=== PATIENT | male | born 1955 | race Two or more races ===

== ENCOUNTER 2018-09-23 12:21 | Inpatient (IN) | payer OTHER ==
[~2018-09-23] VITALS: Ht 13.5 cm; Wt 99.8 kg
== END 2018-10-05 19:50 | disposition home or self-care (01) | DRG 808 ==
LOC: ER 12:21 → SURH 21:34
PROC: 30233N1 Transfusion of Nonautologous Red Blood Cells into Peripheral Vein, Percutaneous Approach (ICD-10-PCS; 2018-09-24)
PROC: BW24ZZZ Computerized Tomography (CT Scan) of Chest and Abdomen (ICD-10-PCS; 2018-09-27)
PROC: 4A033R1 Measurement of Arterial Saturation, Peripheral, Percutaneous Approach (ICD-10-PCS; 2018-09-27)
PROC: 0DBL8ZX Excision of Transverse Colon, Via Natural or Artificial Opening Endoscopic, Diagnostic (ICD-10-PCS; principal; 2018-10-05)
DX: D59.1 Other autoimmune hemolytic anemias (principal); J18.1 Lobar pneumonia, unspecified organism; J90 Pleural effusion, not elsewhere classified; I30.8 Other forms of acute pericarditis; E09.65 Drug or chemical induced diabetes mellitus with hyperglycemia; E09.51 Drug or chemical induced diabetes mellitus with diabetic peripheral angiopathy without gangrene; D12.3 Benign neoplasm of transverse colon; K80.80 Other cholelithiasis without obstruction; K76.0 Fatty (change of) liver, not elsewhere classified; I10 Essential (primary) hypertension; J44.9 Chronic obstructive pulmonary disease, unspecified; J45.40 Moderate persistent asthma, uncomplicated; H26.8 Other specified cataract; E66.9 Obesity, unspecified

== ENCOUNTER 2019-05-02 15:14 | Inpatient (IN) | payer OTHER ==
[~2019-05-02] VITALS: Ht 160 cm; Wt 99.8 kg
--- NOTE | 2019-05-02 15:37 | NUR ---
PTE ALERTA Y ORIENTADO X 3 ESFERAS QUIEN REFIERE SER ENVIADO POR DR KHAN POR R/O DE PULMONIA Y ANEMIA,PTE REFIERE CANSANCIO DESDE HACE VARIOS FINLEY,SE OBSERVA ICTERICO,PTE REFIERE QUE LE PASA CUANDO TIENE ANEMIA,SE OBSERVA CON TOS.
--- NOTE | 2019-05-02 17:29 | NUR ---
PACIENTE ALERTA Y ORIENTADO X3. MANEJADA POR MISS. COHEN QUIEN ORIENTA A PACIENTE SOBRE TX Y PROCEDIMIENTO A REALIZAR. ADMINISTRA MEDICAMENTO BUZZ ORDEN MEDICA, PENDIENTE ADMINISTRAR MAXIPIME ORDENADO. REALIZA MUESTRAS DE LABORATORIO BAJO MEDIDAS ASEPTICAS. CANALIZACION PATENTE Y MADHU DE EDEMA Y ERITEMA. PENDIENTE ABG, PLACA Y CT DE PECHO ORDENADOS.
[2019-05-03] MEDS ORDERED: FOLIC ACID1 MG PO (08:11)
[2019-05-03] MEDS ORDERED: LISINOPRIL20 MG PO (08:11)
[2019-05-03] MEDS ORDERED: AZATHIOPRINE50 MG PO (08:11)
== END 2019-05-15 13:32 | disposition home or self-care (01) | DRG 194 ==
LOC: ER 15:14 → MEDJ 21:57 → ICU 21:57 → MEDJ 05-03 14:50 → ICU 05-09 17:29 → MEDJ 05-12 22:14
PROVIDERS: ADMIT Specialist
PROC: BW24ZZZ Computerized Tomography (CT Scan) of Chest and Abdomen (ICD-10-PCS; principal; 2019-05-02)
PROC: 3E0F7GC Introduction of Other Therapeutic Substance into Respiratory Tract, Via Natural or Artificial Opening (ICD-10-PCS; 2019-05-02)
PROC: 4A12X4Z Monitoring of Cardiac Electrical Activity, External Approach (ICD-10-PCS; 2019-05-03)
PROC: 3E03305 Introduction of Other Antineoplastic into Peripheral Vein, Percutaneous Approach (ICD-10-PCS; 2019-05-05)
PROC: 30233N1 Transfusion of Nonautologous Red Blood Cells into Peripheral Vein, Percutaneous Approach (ICD-10-PCS; 2019-05-06)
PROC: 8E0ZXY6 Isolation (ICD-10-PCS; 2019-05-09)
PROC: 02HV33Z Insertion of Infusion Device into Superior Vena Cava, Percutaneous Approach (ICD-10-PCS; 2019-05-10)
PROC: 30233M1 Transfusion of Nonautologous Plasma Cryoprecipitate into Peripheral Vein, Percutaneous Approach (ICD-10-PCS; 2019-05-10)
PROC: 6A550Z3 Pheresis of Plasma, Single (ICD-10-PCS; 2019-05-10)
DX: J10.1 Influenza due to other identified influenza virus with other respiratory manifestations (principal); N17.8 Other acute kidney failure; D59.1 Other autoimmune hemolytic anemias; N39.0 Urinary tract infection, site not specified; J91.8 Pleural effusion in other conditions classified elsewhere; J10.00 Influenza due to other identified influenza virus with unspecified type of pneumonia; D63.8 Anemia in other chronic diseases classified elsewhere; Z79.4 Long term (current) use of insulin; K80.80 Other cholelithiasis without obstruction; J20.9 Acute bronchitis, unspecified; E86.0 Dehydration; E87.8 Other disorders of electrolyte and fluid balance, not elsewhere classified; E09.9 Drug or chemical induced diabetes mellitus without complications; T38.0X5A Adverse effect of glucocorticoids and synthetic analogues, initial encounter; D72.828 Other elevated white blood cell count; R60.1 Generalized edema; K29.00 Acute gastritis without bleeding; E87.6 Hypokalemia; R09.02 Hypoxemia

== ENCOUNTER → 2020-08-07 | Outpatient (CLI) | payer OTHER ==
[~2020-08-07] MED LIST: AZATHIOPRINE50 MG PO; FOLIC ACID1 MG PO; LISINOPRIL20 MG PO
== END | disposition home or self-care (01) ==
LOC: MRI 08:45
PROVIDERS: ATTEND Physical Medicine & Rehabilitation
DX: M25.561 Pain in right knee (principal)
CPT/HCPCS: 73221

== ENCOUNTER 2021-02-05 07:04 | Inpatient (IN) | payer OTHER ==
[~2021-02-05] VITALS: Ht 160 cm; Wt 110.2 kg
[2021-02-11] MEDS ORDERED: HYDROCODONE-CH115 ML PO (08:57)
[2021-02-11] MEDS ORDERED: FOLIC ACID1 MG PO (08:58)
== END 2021-02-11 11:24 | disposition home or self-care (01) | DRG 810 ==
LOC: MEDI 07:04
PROVIDERS: ADMIT Internal Medicine Hematology & Oncology; ATTEND Internal Medicine Hematology & Oncology
PROC: 30233N1 Transfusion of Nonautologous Red Blood Cells into Peripheral Vein, Percutaneous Approach (ICD-10-PCS; principal; 2021-02-05)
PROC: 8E0ZXY6 Isolation (ICD-10-PCS; 2021-02-05)
PROC: 3E0F7SF Introduction of Other Gas into Respiratory Tract, Via Natural or Artificial Opening (ICD-10-PCS; 2021-02-07)
DX: D59.10 Autoimmune hemolytic anemia, unspecified (principal); E11.51 Type 2 diabetes mellitus with diabetic peripheral angiopathy without gangrene; E11.65 Type 2 diabetes mellitus with hyperglycemia; I70.209 Unspecified atherosclerosis of native arteries of extremities, unspecified extremity; E66.8 Other obesity

== ENCOUNTER 2021-02-21 12:55 | Inpatient (IN) | payer OTHER ==
[~2021-02-21] VITALS: Ht 160 cm; Wt 108.9 kg
[~2021-02-21 12:55] MED LIST changes: +HYDROCODONE-CH115 ML PO
[2021-02-25] MEDS ORDERED: AMOXICILLIN500 M1 PO (09:08)
== END 2021-02-25 10:56 | disposition home or self-care (01) | DRG 809 ==
LOC: MEDJ 12:55
PROVIDERS: ADMIT Internal Medicine Hematology & Oncology; ATTEND Internal Medicine Hematology & Oncology
PROC: 30233N1 Transfusion of Nonautologous Red Blood Cells into Peripheral Vein, Percutaneous Approach (ICD-10-PCS; principal; 2021-02-21)
DX: D59.19 Other autoimmune hemolytic anemia (principal); N39.0 Urinary tract infection, site not specified; R06.02 Shortness of breath; R53.1 Weakness; E11.65 Type 2 diabetes mellitus with hyperglycemia; Z79.4 Long term (current) use of insulin; I10 Essential (primary) hypertension

== ENCOUNTER 2021-03-10 11:39 | Inpatient (IN) | payer OTHER ==
[~2021-03-10] VITALS: Ht 160 cm; Wt 107.5 kg
[~2021-03-10 11:39] MED LIST changes: +AMOXICILLIN500 M1 PO
[2021-03-13] MEDS ORDERED: HYDROCODONE-CH115 ML PO (09:16)
[2021-03-13] MEDS ORDERED: FOLIC ACID1 MG PO (09:17)
[2021-03-13] MEDS ORDERED: BETAMETHASONE D15 G3 TOP (09:17)
== END 2021-03-13 10:14 | disposition home or self-care (01) | DRG 810 ==
LOC: SEC-K 11:39 → MEDI 18:01
PROVIDERS: ADMIT Internal Medicine Hematology & Oncology; ATTEND Internal Medicine Hematology & Oncology
PROC: 30233N1 Transfusion of Nonautologous Red Blood Cells into Peripheral Vein, Percutaneous Approach (ICD-10-PCS; principal; 2021-03-10)
PROC: 8E0ZXY6 Isolation (ICD-10-PCS; 2021-03-10)
DX: D59.19 Other autoimmune hemolytic anemia (principal); I10 Essential (primary) hypertension; E11.9 Type 2 diabetes mellitus without complications; Z20.822 Contact with and (suspected) exposure to COVID-19

== ENCOUNTER 2021-03-28 15:01 | Inpatient (IN) | payer OTHER ==
[~2021-03-28] VITALS: Ht 160 cm; Wt 107.5 kg
[~2021-03-28 15:01] MED LIST changes: +BETAMETHASONE D15 G3 TOP
[2021-03-31] MEDS ORDERED: Lantus 1000 UNITS/10 SUBCUTANEO (18:39)
== END 2021-03-31 20:56 | disposition home or self-care (01) | DRG 810 ==
LOC: SURH 15:01
PROVIDERS: ADMIT Internal Medicine Hematology & Oncology; ATTEND Internal Medicine Hematology & Oncology
PROC: 8E0ZXY6 Isolation (ICD-10-PCS; 2021-03-29)
PROC: 30233N1 Transfusion of Nonautologous Red Blood Cells into Peripheral Vein, Percutaneous Approach (ICD-10-PCS; principal; 2021-03-30)
DX: D59.19 Other autoimmune hemolytic anemia (principal); E83.111 Hemochromatosis due to repeated red blood cell transfusions; E11.65 Type 2 diabetes mellitus with hyperglycemia; I10 Essential (primary) hypertension; Z79.4 Long term (current) use of insulin; T38.0X5A Adverse effect of glucocorticoids and synthetic analogues, initial encounter

== ENCOUNTER 2021-04-28 11:13 | Inpatient (IN) | payer OTHER ==
[~2021-04-28] VITALS: Ht 162.6 cm; Wt 106.6 kg
[~2021-04-28 11:13] MED LIST changes: +Lantus 1000 UNITS/10 SUBCUTANEO
[2021-05-02] MEDS ORDERED: HYDROCODONE-CH115 ML PO (18:24)
== END 2021-05-02 21:58 | disposition home or self-care (01) | DRG 810 ==
LOC: SEC-K 11:13 → SURH 11:13
PROVIDERS: ADMIT Internal Medicine Hematology & Oncology; ATTEND Internal Medicine Hematology & Oncology
PROC: 30233N1 Transfusion of Nonautologous Red Blood Cells into Peripheral Vein, Percutaneous Approach (ICD-10-PCS; principal; 2021-05-01)
DX: D59.19 Other autoimmune hemolytic anemia (principal); E11.51 Type 2 diabetes mellitus with diabetic peripheral angiopathy without gangrene; I70.299 Other atherosclerosis of native arteries of extremities, unspecified extremity; E11.65 Type 2 diabetes mellitus with hyperglycemia; Z20.822 Contact with and (suspected) exposure to COVID-19

== ENCOUNTER 2021-05-05 12:10 | Inpatient (IN) | payer OTHER ==
[~2021-05-05] VITALS: Ht 160 cm; Wt 106.6 kg
[2021-05-05] MEDS ORDERED: NORVASC10 MG PO (12:38)
== END 2021-05-11 17:48 | disposition home or self-care (01) | DRG 603 ==
LOC: ER 12:10 → MEDJ 20:16
PROVIDERS: ADMIT Internal Medicine Hematology & Oncology; ATTEND Internal Medicine Hematology & Oncology
PROC: 8E0ZXY6 Isolation (ICD-10-PCS; 2021-05-06)
PROC: BP3DZZZ Magnetic Resonance Imaging (MRI) of Left Hand/Finger Joint (ICD-10-PCS; 2021-05-07)
PROC: 30233N1 Transfusion of Nonautologous Red Blood Cells into Peripheral Vein, Percutaneous Approach (ICD-10-PCS; principal; 2021-05-10)
DX: L03.114 Cellulitis of left upper limb (principal); D59.19 Other autoimmune hemolytic anemia; B95.61 Methicillin susceptible Staphylococcus aureus infection as the cause of diseases classified elsewhere; Z20.822 Contact with and (suspected) exposure to COVID-19; E83.111 Hemochromatosis due to repeated red blood cell transfusions; E11.65 Type 2 diabetes mellitus with hyperglycemia; I10 Essential (primary) hypertension; D72.829 Elevated white blood cell count, unspecified; R50.9 Fever, unspecified

== ENCOUNTER 2021-05-28 15:10 | Inpatient (IN) | payer OTHER ==
[~2021-05-28] VITALS: Ht 160 cm; Wt 105.7 kg
[~2021-05-28 15:10] MED LIST changes: +NORVASC10 MG PO
== END 2021-06-01 13:30 | disposition home or self-care (01) | DRG 812 ==
LOC: MEDI 15:10 → MEDJ 15:11 → SEC-K 15:11 → MEDJ 16:25
PROVIDERS: ADMIT Internal Medicine Hematology & Oncology; ATTEND Internal Medicine Hematology & Oncology
PROC: 02HV33Z Insertion of Infusion Device into Superior Vena Cava, Percutaneous Approach (ICD-10-PCS; 2021-05-28)
PROC: 3E0F7GC Introduction of Other Therapeutic Substance into Respiratory Tract, Via Natural or Artificial Opening (ICD-10-PCS; 2021-05-29)
PROC: 30233N1 Transfusion of Nonautologous Red Blood Cells into Peripheral Vein, Percutaneous Approach (ICD-10-PCS; principal; 2021-05-31)
DX: D64.9 Anemia, unspecified (principal); D59.19 Other autoimmune hemolytic anemia; J20.9 Acute bronchitis, unspecified; L05.91 Pilonidal cyst without abscess; E83.111 Hemochromatosis due to repeated red blood cell transfusions; R60.1 Generalized edema; E11.9 Type 2 diabetes mellitus without complications

== ENCOUNTER 2021-06-12 11:48 | Inpatient (IN) | payer OTHER ==
[~2021-06-12] VITALS: Ht 160 cm; Wt 105.7 kg
[2021-06-24] MEDS ORDERED: AMLODIPINE BESY10 MG PO (16:29)
[2021-06-24] MEDS ORDERED: GABAPENTIN100 MG PO (16:30)
[2021-06-24] MEDS ORDERED: RESTORIL15 MG PO (16:31)
[2021-06-24] MEDS ORDERED: HYDROCODONE-CH115 ML PO (16:32)
[2021-06-24] MEDS ORDERED: FOLIC ACID1 MG PO (16:33)
[2021-06-24] MEDS ORDERED: XOPENEX HFA15 GM IH (16:34)
== END 2021-06-24 17:51 | disposition home or self-care (01) | DRG 872 ==
LOC: MEDJ 11:48 → MEDI 06-20 17:04
PROVIDERS: ADMIT Internal Medicine Hematology & Oncology; ATTEND Internal Medicine Hematology & Oncology
PROC: 30243N1 Transfusion of Nonautologous Red Blood Cells into Central Vein, Percutaneous Approach (ICD-10-PCS; principal; 2021-06-15)
PROC: 6A551Z3 Pheresis of Plasma, Multiple (ICD-10-PCS; 2021-06-15)
PROC: 05HM33Z Insertion of Infusion Device into Right Internal Jugular Vein, Percutaneous Approach (ICD-10-PCS; 2021-06-16)
PROC: 02HV33Z Insertion of Infusion Device into Superior Vena Cava, Percutaneous Approach (ICD-10-PCS; 2021-06-19)
PROC: 4A12X4Z Monitoring of Cardiac Electrical Activity, External Approach (ICD-10-PCS; 2021-06-19)
PROC: 3E0F7SF Introduction of Other Gas into Respiratory Tract, Via Natural or Artificial Opening (ICD-10-PCS; 2021-06-22)
DX: A41.9 Sepsis, unspecified organism (principal); D59.19 Other autoimmune hemolytic anemia; N17.8 Other acute kidney failure; I10 Essential (primary) hypertension; Z20.822 Contact with and (suspected) exposure to COVID-19; E66.01 Morbid (severe) obesity due to excess calories; J20.9 Acute bronchitis, unspecified; Z79.52 Long term (current) use of systemic steroids; J43.8 Other emphysema; E83.111 Hemochromatosis due to repeated red blood cell transfusions; E11.51 Type 2 diabetes mellitus with diabetic peripheral angiopathy without gangrene; I70.298 Other atherosclerosis of native arteries of extremities, other extremity; Z90.81 Acquired absence of spleen

== ENCOUNTER 2021-09-02 11:28 | Inpatient (IN) | payer OTHER ==
[~2021-09-02] VITALS: Ht 170.2 cm; Wt 108.9 kg
[~2021-09-02 11:28] MED LIST changes: +AMLODIPINE BESY10 MG PO; +GABAPENTIN100 MG PO; +RESTORIL15 MG PO; +XOPENEX HFA15 GM IH
[2021-09-05] MEDS ORDERED: AMLODIPINE BESY10 MG PO (18:00)
[2021-09-05] MEDS ORDERED: GABAPENTIN100 MG PO (18:01)
[2021-09-05] MEDS ORDERED: RESTORIL15 MG PO (18:01)
[2021-09-05] MEDS ORDERED: HYDROCODONE-CH115 ML PO (18:02)
[2021-09-05] MEDS ORDERED: FOLIC ACID1 MG PO (18:03)
[2021-09-05] MEDS ORDERED: HUMALOG100 UNIT/1 SUBCUTANEO (18:03)
== END 2021-09-05 19:21 | disposition home or self-care (01) | DRG 810 ==
LOC: SEC-K 11:28 → SURH 16:01
PROVIDERS: ADMIT Internal Medicine Hematology & Oncology; ATTEND Internal Medicine Hematology & Oncology
PROC: 30233N1 Transfusion of Nonautologous Red Blood Cells into Peripheral Vein, Percutaneous Approach (ICD-10-PCS; principal; 2021-09-04)
DX: D59.10 Autoimmune hemolytic anemia, unspecified (principal); D64.9 Anemia, unspecified; Z90.81 Acquired absence of spleen; E83.111 Hemochromatosis due to repeated red blood cell transfusions; E09.9 Drug or chemical induced diabetes mellitus without complications; I10 Essential (primary) hypertension

== ENCOUNTER 2021-10-03 11:15 | Inpatient (IN) | payer OTHER ==
[~2021-10-03] VITALS: Ht 160 cm; Wt 104.3 kg
[~2021-10-03 11:15] MED LIST changes: +HUMALOG100 UNIT/1 SUBCUTANEO
== END 2021-10-08 11:44 | disposition home or self-care (01) | DRG 810 ==
LOC: MEDJ 11:15
PROVIDERS: ADMIT Internal Medicine Hematology & Oncology; ATTEND Internal Medicine Hematology & Oncology
PROC: 30233N1 Transfusion of Nonautologous Red Blood Cells into Peripheral Vein, Percutaneous Approach (ICD-10-PCS; principal; 2021-10-03)
DX: D59.19 Other autoimmune hemolytic anemia (principal); E83.111 Hemochromatosis due to repeated red blood cell transfusions; E09.9 Drug or chemical induced diabetes mellitus without complications; E66.8 Other obesity; I10 Essential (primary) hypertension; J45.998 Other asthma; Z79.4 Long term (current) use of insulin

== ENCOUNTER 2021-10-13 20:16 | Inpatient (IN) | payer OTHER ==
[~2021-10-13] VITALS: Ht 160 cm; Wt 235.0 kg
[2021-11-13] MEDS ORDERED: XOPENEX HFA15 GM IH (12:22)
[2021-11-13] MEDS ORDERED: GABAPENTIN100 MG PO (12:23)
[2021-11-13] MEDS ORDERED: AMLODIPINE BESY10 MG PO (12:23)
[2021-11-13] MEDS ORDERED: OXYC1TAB9 PO (12:25)
[2021-11-13] MEDS ORDERED: HYDROCODONE-CH115 ML PO (12:26)
[2021-11-13] MEDS ORDERED: RESTORIL15 MG PO (12:26)
[2021-11-13] MEDS ORDERED: Lantus 1000 UNITS/10 SUBCUTANEO (12:27)
[2021-11-13] MEDS ORDERED: PREDNISONE10 MG PO (12:27)
[2021-11-13] MEDS ORDERED: FOLIC ACID1 MG PO (12:27)
== END 2021-11-13 15:26 | disposition home or self-care (01) | DRG 809 ==
LOC: ER 20:16 → SURH 21:20 → MEDJ 21:20
PROVIDERS: ADMIT Internal Medicine Hematology & Oncology; ATTEND Internal Medicine Hematology & Oncology
PROC: BW2410Z Computerized Tomography (CT Scan) of Chest and Abdomen using Low Osmolar Contrast, Unenhanced and Enhanced (ICD-10-PCS; 2021-10-13)
PROC: B030ZZZ Magnetic Resonance Imaging (MRI) of Brain (ICD-10-PCS; 2021-10-13)
PROC: 02HV33Z Insertion of Infusion Device into Superior Vena Cava, Percutaneous Approach (ICD-10-PCS; 2021-10-14)
PROC: 30243N1 Transfusion of Nonautologous Red Blood Cells into Central Vein, Percutaneous Approach (ICD-10-PCS; principal; 2021-10-15)
PROC: 05HM33Z Insertion of Infusion Device into Right Internal Jugular Vein, Percutaneous Approach (ICD-10-PCS; 2021-10-15)
PROC: B543ZZA Ultrasonography of Right Jugular Veins, Guidance (ICD-10-PCS; 2021-10-15)
PROC: BT4JZZZ Ultrasonography of Kidneys and Bladder (ICD-10-PCS; 2021-10-15)
PROC: 4A12X4Z Monitoring of Cardiac Electrical Activity, External Approach (ICD-10-PCS; 2021-10-22)
PROC: 30243K1 Transfusion of Nonautologous Frozen Plasma into Central Vein, Percutaneous Approach (ICD-10-PCS; 2021-10-24)
PROC: B54MZZZ Ultrasonography of Right Upper Extremity Veins (ICD-10-PCS; 2021-10-25)
PROC: B24BYZZ Ultrasonography of Heart with Aorta using Other Contrast (ICD-10-PCS; 2021-10-28)
DX: D59.13 Mixed type autoimmune hemolytic anemia (principal); I82.621 Acute embolism and thrombosis of deep veins of right upper extremity; Z68.41 Body mass index [BMI] 40.0-44.9, adult; R78.81 Bacteremia; E83.111 Hemochromatosis due to repeated red blood cell transfusions; M54.2 Cervicalgia; M62.830 Muscle spasm of back; F43.23 Adjustment disorder with mixed anxiety and depressed mood; E09.65 Drug or chemical induced diabetes mellitus with hyperglycemia; E09.69 Drug or chemical induced diabetes mellitus with other specified complication; E66.9 Obesity, unspecified; E78.00 Pure hypercholesterolemia, unspecified; I10 Essential (primary) hypertension; J45.909 Unspecified asthma, uncomplicated; Z79.4 Long term (current) use of insulin; B95.7 Other staphylococcus as the cause of diseases classified elsewhere
CPT/HCPCS: 70553

== ENCOUNTER 2021-12-24 11:16 | Outpatient (CLI) | payer OTHER ==
[~2021-12-24 11:16] MED LIST changes: +OXYC1TAB9 PO; +PREDNISONE10 MG PO
== END 2021-12-24 11:33 | disposition home or self-care (01) ==
LOC: SONOGRAMA 11:16
PROVIDERS: ATTEND Internal Medicine Hematology & Oncology
DX: I82.721 Chronic embolism and thrombosis of deep veins of right upper extremity (principal); L03.113 Cellulitis of right upper limb

== ENCOUNTER 2022-05-27 09:48 | Outpatient (CLI) | payer OTHER | END 2022-05-27 09:49 | disposition home or self-care (01) | LOC: NUCLEAR 09:48 | PROVIDERS: ATTEND Internal Medicine Hematology & Oncology | DX: I82.621 Acute embolism and thrombosis of deep veins of right upper extremity (principal); Z79.01 Long term (current) use of anticoagulants ==

== ENCOUNTER 2022-05-28 12:34 | Emergency (ER) | payer OTHER ==
[~2022-05-28] VITALS: Ht 160 cm; Wt 113.4 kg
== END 2022-05-28 18:48 | disposition home or self-care (01) ==
LOC: ER 12:34
DX: R53.83 Other fatigue (principal); J40 Bronchitis, not specified as acute or chronic; D59.10 Autoimmune hemolytic anemia, unspecified; E11.51 Type 2 diabetes mellitus with diabetic peripheral angiopathy without gangrene; I70.209 Unspecified atherosclerosis of native arteries of extremities, unspecified extremity; Z79.4 Long term (current) use of insulin; Z20.822 Contact with and (suspected) exposure to COVID-19

== ENCOUNTER 2022-06-01 16:56 | Inpatient (IN) | payer OTHER ==
[~2022-06-01] VITALS: Ht 160 cm; Wt 113.4 kg
[2022-06-02] MEDS ORDERED: SOLIQUA 100 UNIT3 ML (08:14)
[2022-06-02] MEDS ORDERED: BRIMONIDINE TART5 M1 (08:15)
[2022-06-02] MEDS ORDERED: XARELTO10 M1 (08:15)
[2022-06-02] MEDS ORDERED: LATANOPROST2.5 ML (08:15)
[2022-06-02] MEDS ORDERED: NEO-POLYMYXIN-H10 M1 (08:15)
[2022-06-02] MEDS ORDERED: FERROUS SULFAT325 MG (08:15)
[2022-06-02] MEDS ORDERED: REFRESH LIQUIGE15 ML (08:15)
[2022-06-09] MEDS ORDERED: PYRIDOXINE HCL100 MG PO (13:01)
[2022-06-09] MEDS ORDERED: FOLIC ACID1 MG PO (13:01)
[2022-06-09] MEDS ORDERED: PEPCID AC20 MG PO (13:04)
[2022-06-09] MEDS ORDERED: PREDNISONE20 M1 PO (13:06)
== END 2022-06-09 14:43 | disposition home or self-care (01) | DRG 809 ==
LOC: SEC-K 16:56 → SURH 06-02 00:48
PROVIDERS: ADMIT Internal Medicine Hematology & Oncology; ATTEND Internal Medicine Hematology & Oncology
PROC: 30233N1 Transfusion of Nonautologous Red Blood Cells into Peripheral Vein, Percutaneous Approach (ICD-10-PCS; principal; 2022-06-04)
DX: D59.19 Other autoimmune hemolytic anemia (principal); J45.901 Unspecified asthma with (acute) exacerbation; E83.111 Hemochromatosis due to repeated red blood cell transfusions; D64.9 Anemia, unspecified; I10 Essential (primary) hypertension; Z20.822 Contact with and (suspected) exposure to COVID-19; I25.10 Atherosclerotic heart disease of native coronary artery without angina pectoris

== ENCOUNTER 2022-10-28 07:16 | Outpatient (CLI) | payer OTHER ==
[~2022-10-28 07:16] MED LIST changes: +BRIMONIDINE TART5 M1; +FERROUS SULFAT325 MG; +LATANOPROST2.5 ML; +NEO-POLYMYXIN-H10 M1; +PEPCID AC20 MG PO; +PREDNISONE20 M1 PO; +PYRIDOXINE HCL100 MG PO; +REFRESH LIQUIGE15 ML; +SOLIQUA 100 UNIT3 ML; +XARELTO10 M1
== END 2022-10-28 07:33 | disposition home or self-care (01) ==
LOC: LAB 07:16
DX: S82.65XA Nondisplaced fracture of lateral malleolus of left fibula, initial encounter for closed fracture (principal); N39.0 Urinary tract infection, site not specified; I10 Essential (primary) hypertension; H53.9 Unspecified visual disturbance; M54.51 Vertebrogenic low back pain

== ENCOUNTER 2023-01-07 12:58 | Outpatient (CLI) | payer OTHER | END 2023-01-07 12:59 | disposition home or self-care (01) | LOC: NUCLEAR 12:58 | PROVIDERS: ATTEND Specialist | DX: M81.0 Age-related osteoporosis without current pathological fracture (principal); Z13.820 Encounter for screening for osteoporosis ==

== ENCOUNTER 2023-03-30 13:53 | Inpatient (IN) | payer OTHER ==
[~2023-03-30] VITALS: Ht 170.2 cm; Wt 102.1 kg
[2023-03-31] MEDS ORDERED: JARDIANCE10 MG (08:35)
[2023-03-31] MEDS ORDERED: SULINDAC200 MG (08:35)
[2023-03-31] MEDS ORDERED: IRBESARTAN300 MG (08:36)
[2023-03-31] MEDS ORDERED: POLYMYXIN B-TMP10 ML (08:36)
== END 2023-04-04 12:52 | disposition home or self-care (01) | DRG 291 ==
LOC: ER 13:53 → MEDI 20:15 → MEDJ 20:15 → MEDI 20:18 → MEDJ 20:46
PROVIDERS: ADMIT Specialist; ATTEND Specialist
PROC: 4A12X4Z Monitoring of Cardiac Electrical Activity, External Approach (ICD-10-PCS; principal; 2023-03-30)
PROC: B24BYZZ Ultrasonography of Heart with Aorta using Other Contrast (ICD-10-PCS; 2023-03-30)
PROC: 4A02XM4 Measurement of Cardiac Total Activity, External Approach (ICD-10-PCS; 2023-03-31)
PROC: 3E073KZ Introduction of Other Diagnostic Substance into Coronary Artery, Percutaneous Approach (ICD-10-PCS; 2023-03-31)
PROC: C23GYZZ Positron Emission Tomographic (PET) Imaging of Myocardium using Other Radionuclide (ICD-10-PCS; 2023-03-31)
DX: I11.0 Hypertensive heart disease with heart failure (principal); I50.21 Acute systolic (congestive) heart failure; D58.9 Hereditary hemolytic anemia, unspecified; N17.9 Acute kidney failure, unspecified; I48.0 Paroxysmal atrial fibrillation; I25.10 Atherosclerotic heart disease of native coronary artery without angina pectoris; E88.81 Metabolic syndrome and other insulin resistance; E66.09 Other obesity due to excess calories; G47.33 Obstructive sleep apnea (adult) (pediatric); E11.8 Type 2 diabetes mellitus with unspecified complications; I27.20 Pulmonary hypertension, unspecified

== ENCOUNTER 2023-04-09 09:48 | Emergency (ER) | payer OTHER ==
[~2023-04-09] VITALS: Ht 210.8 cm; Wt 100.7 kg
[~2023-04-09 09:48] MED LIST changes: +IRBESARTAN300 MG; +JARDIANCE10 MG; +POLYMYXIN B-TMP10 ML; +SULINDAC200 MG
== END 2023-04-09 18:59 | disposition home or self-care (01) ==
LOC: ER 09:48
DX: D59.19 Other autoimmune hemolytic anemia (principal); R07.89 Other chest pain; G47.30 Sleep apnea, unspecified; E11.9 Type 2 diabetes mellitus without complications; I10 Essential (primary) hypertension

== ENCOUNTER 2023-04-13 17:15 | Inpatient (IN) | payer OTHER ==
[~2023-04-13] VITALS: Ht 160 cm; Wt 100.7 kg
[2023-04-13] MEDS ORDERED: SYMBICORT 16010.2 GM IH (17:36)
[2023-04-13] MEDS ORDERED: AVAPRO300 MG PO (17:36)
[2023-04-13] MEDS ORDERED: SUCRALFATE1 GM PO (17:37)
[2023-04-13] MEDS ORDERED: MONTELUKAST SOD10 MG PO (17:37)
--- NOTE | 2023-04-13 17:52 | NUR ---
SE RECIBE PTE ALERTA ORIENTADO X3 EN COMPANIA DE HIJA LA CUAL REFIERE PTE PRESENTA DIFICULTAD RESPIRATORIA DESDE ELVIS EN LA NOCHE.REFERIDO A LA JOANA DE EMERGENCIA POR DR.MORALES AKINS.PTE REFIERE ZACHERY ESTADO HOSPITALIZA LA PASADA SEMANA.SE KELLI EKG SE PRESENTA A EL CUAL ORDENA UBICAR PTE EN CRITICO.
--- NOTE | 2023-04-13 19:10 | NUR ---
PTE ALERTA,ESTABLE Y ORIENTADO SE EDUCA SOBRE EL TRATAMIENTO QUE RECIBIRA EN EL HOSPITAL Y NEIL REFIERE ENTENDER.SE LE JHONY MUESTRAS DE MARCELLO Y SE LE ADMINISTRA MEDICAMENTOS BUZZ ORDEN MEDICA
[2023-04-14] MEDS ORDERED: FARXIGA5 MG (08:36)
[2023-04-14] MEDS ORDERED: SULINDAC200 MG (08:37)
[2023-04-14] MEDS ORDERED: CARVEDILOL12.5 M1 (08:37)
[2023-04-14] MEDS ORDERED: ST. JOSEPH ASPI81 M2 (08:37)
[2023-04-14] MEDS ORDERED: LATANOPROST2.5 ML (08:37)
[2023-04-14] MEDS ORDERED: FUROSEMIDE20 MG (08:37)
== END 2023-04-23 12:52 | disposition home or self-care (01) | DRG 808 ==
LOC: ER 17:15 → MEDJ 20:05 → SEC-K 20:05 → MEDJ 04-14 18:05
PROVIDERS: ADMIT Internal Medicine Hematology & Oncology; ATTEND Internal Medicine Hematology & Oncology
PROC: 4A12X4Z Monitoring of Cardiac Electrical Activity, External Approach (ICD-10-PCS; 2023-04-13)
PROC: 3E0F7GC Introduction of Other Therapeutic Substance into Respiratory Tract, Via Natural or Artificial Opening (ICD-10-PCS; 2023-04-13)
PROC: 3E0F7SF Introduction of Other Gas into Respiratory Tract, Via Natural or Artificial Opening (ICD-10-PCS; 2023-04-13)
PROC: 02HV33Z Insertion of Infusion Device into Superior Vena Cava, Percutaneous Approach (ICD-10-PCS; 2023-04-14)
PROC: 8E0ZXY6 Isolation (ICD-10-PCS; 2023-04-15)
PROC: 30233N1 Transfusion of Nonautologous Red Blood Cells into Peripheral Vein, Percutaneous Approach (ICD-10-PCS; principal; 2023-04-16)
PROC: BB24ZZZ Computerized Tomography (CT Scan) of Bilateral Lungs (ICD-10-PCS; 2023-04-16)
PROC: B246ZZZ Ultrasonography of Right and Left Heart (ICD-10-PCS; 2023-04-18)
DX: D59.19 Other autoimmune hemolytic anemia (principal); I50.23 Acute on chronic systolic (congestive) heart failure; U07.1 COVID-19; J12.82 Pneumonia due to coronavirus disease 2019; I48.20 Chronic atrial fibrillation, unspecified; E27.49 Other adrenocortical insufficiency; J44.1 Chronic obstructive pulmonary disease with (acute) exacerbation; N39.0 Urinary tract infection, site not specified; B48.8 Other specified mycoses; N48.1 Balanitis; J45.998 Other asthma; R00.0 Tachycardia, unspecified; I11.0 Hypertensive heart disease with heart failure; E11.65 Type 2 diabetes mellitus with hyperglycemia; F41.8 Other specified anxiety disorders; G47.33 Obstructive sleep apnea (adult) (pediatric); B95.2 Enterococcus as the cause of diseases classified elsewhere; Z79.4 Long term (current) use of insulin; Z79.52 Long term (current) use of systemic steroids